=== PATIENT | female | born 1960 ===

== ENCOUNTER 2017-07-09 16:38 | Emergency (ER) | payer OTHER ==
[2017-07-09 16:51] VITALS: RESP 16; TEMP 98.6; O2SAT 99
--- NOTE | 2017-07-09 17:37 | C.PDOC ---
History Of Present Illness 56 y/o female presents to the ER complaining of sore throat and headache. Patient states she did not take any medications but she did eat a tooth of garlic in the morning. Patient denies having nausea, vomiting, and diarrhea. Time Seen by Provider: 07/09/17 17:31 Chief Complaint (Nursing): Flu-like Symptoms History Per: Patient History/Exam Limitations: no limitations Onset/Duration Of Symptoms: Days Current Symptoms Are (Timing): Still Present Associated Symptoms: Sore Throat. denies: Nausea, Vomiting, Diarrhea Severity: Moderate Past Medical History Reviewed: Historical Data, Nursing Documentation, Vital Signs Vital Signs: Last Vital Signs Temp 98.6 F 07/09/17 16:47 Pulse 72 07/09/17 16:47 Resp 16 07/09/17 16:47 BP 120/76 07/09/17 16:47 Pulse Ox 99 07/09/17 18:13 - Medical History PMH: No Chronic Diseases Other Surgeries: Hx of surgeries Family History: States: No Known Family Hx - Social History Hx Alcohol Use: No Hx Substance Use: No - Immunization History Hx Tetanus Toxoid Vaccination: No Hx Influenza Vaccination: No Hx Pneumococcal Vaccination: No Review Of Systems Except As Marked, All Systems Reviewed And Found Negative. Constitutional: Negative for: Fever, Chills ENT: Positive for: Throat Pain Gastrointestinal: Negative for: Nausea, Vomiting, Diarrhea Neurological: Positive for: Headache Physical Exam - Physical Exam Appears: Non-toxic, No Acute Distress Skin: Normal Color, Warm Head: Atraumatic, Normacephalic Eye(s): bilateral: Normal Inspection Ear(s): Bilateral: Normal Nose: Normal Oral Mucosa: Moist Throat: Normal, No Erythema, No Exudate Neck: Supple Chest: Symmetrical Cardiovascular: Rhythm Regular Respiratory: Normal Breath Sounds, No Accessory Muscle Use, No Rales, No Rhonchi , No Wheezing Extremity: Normal ROM Neurological/Psych: Oriented x3, Normal Speech, Normal Motor, Normal Sensation ED Course And Treatment O2 Sat by Pulse Oximetry: 99 (RA) Pulse Ox Interpretation: Normal Medical Decision Making Medical Decision Making: typical viral syndrome, no treatment today so far (except eating a tooth of garlic) normal exam. Tamiflu empirically for Influenza epidemic. Disposition Doctor Will See Patient In The: Office Counseled Patient/Family Regarding: Studies Performed, Diagnosis - Disposition Referrals: [facility] [Outside] Disposition: HOME/ ROUTINE Disposition Time: 17:37 Condition: GOOD Additional Instructions: serina Tamiflu 75 mg dos veces al ember por 5 mcfarlane Dayquil/Nyquil keyur necessario Otros remedio keyur Ud tanner Rosado en [facility]. Prescriptions: Oseltamivir [Tamiflu] 75 mg PO BID #9 cap Instructions: Influenza (ED) Forms: [employer] (Malay) Print Language: POLISH - Clinical Impression Clinical Impression: Influenza-like illness - Scribe Statement The provider has reviewed the documentation as recorded by the Scribe Ulises Wick Provider Attestation: All medical record entries made by the Scribe were at my direction and personally dictated by me. I have reviewed the chart and agree that the record accurately reflects my personal performance of the history, physical exam, medical decision making, and the department course for this patient. I have also personally directed, reviewed, and agree with the discharge instructions and disposition.
[2017-07-09] MEDS ORDERED: guaiFENesin 100 mg/5 ml Syrup UD PO STA (17:39)
[2017-07-09] MEDS ORDERED: guaiFENesin DM 100 mg-10 mg/5 ml UD ONE (17:45)
[2017-07-09 18:15] VITALS: BP 122/68; PULSE 79
== END 2017-07-09 18:14 | disposition home or self-care (01) ==
LOC: C.ER 16:38
DX: J11.1 Influenza due to unidentified influenza virus with other respiratory manifestations (principal)